=== PATIENT | male | born 1975 | race Caucasian/White ===

== ENCOUNTER 2024-09-10 09:50 | Emergency (ER) | payer SELFPAY ==
--- NOTE | 2024-09-10 14:36 | ED.DENTAL ---
HPI - Dental/Oral General Chief complaint: Dental/Oral Stated complaint: tooth pain Time Seen by Provider: 09/10/24 14:01 Source: patient Mode of arrival: ambulatory Limitations: no limitations History of Present Illness HPI Narrative: this is a 48-year-old male who presents to the ED for chief complaint of dental pain throughout the mouth, the horse on the left side. Reports this has been ongoing for the past 2 weeks and worse today. 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 Patient reports he knows he has rotten teeth and has not seen a dentist in 2 years. States that he wants to get ahead of the infection. denies fevers, chills, drooling, dysphagia, nausea, vomiting. Review of Systems Review of Systems: All systems as dictated in HPI Exam Narrative: GENERAL: Well-appearing, well-nourished, and in no acute distress. HEAD: Normocephalic, atraumatic. EYES: PERRLA and EOMI. ENT: nearly edentulous. remaining teeth are DKA. No appreciable abscess on exam. No trismus or drooling. Floor of the mouth intact. Facial swelling. NECK: Supple. No adenopathy or masses. CHEST: No respiratory distress. Clear to auscultation. No wheezes rales or rhonchi HEART: Regular rate and rhythm. No murmur heard. Normal peripheral pulses. ABDOMEN: Soft, nontender, nondistended, normal active bowel sounds. MSK: Normal range of motion. No edema. SKIN: Warm, dry, no rash. NEURO: Alert and oriented x4. No focal deficits. PSYCH: Normal mood and affect. MDM - Dental/Oral MDM Narrative Medical decision making narrative: This is a 48 yo male who presents to the ED for chief complaint of dental pain. Vitals are normal. Exam shows multiple teeth missing and remaining teeth are decaying. No appreciable abscess or deep space infection on exam. Rx for antibiotics for dental infection prescribed. He was given IM Toradol here. Dental resource sheet given Patient will be discharged in stable condition. Supportive measures discussed and return precautions given. Patient is understanding and agreeable with plan for discharge with PCP follow-up. Discharge Plan Discharge Clinical Impression: Dental caries Patient Disposition: Home, Self-Care Condition: Stable Instructions: Antibiotic Form, Toothache (ED) Additional Instructions: Your exam today shows multiple missing teeth and extensive dental decay. Please follow-up with dentist as soon as possible. Take antibiotics as prescribed. Use Tylenol and ibuprofen regularly for pain control. If you have any new or worsening symptoms please return to the ER for further evaluation. Prescriptions: New amoxicillin-pot clavulanate 875-125 mg tablet 1 tablet PO Q12H Qty: 14 0RF Follow-up/Referrals: PHYSICIAN NOT ON STAFF,NONSTAFF [Primary Care Provider] - Stand Alone Forms: Work/School Release IP Time of Disposition: 14:39
[2024-09-10] MEDS: Please add drug allergy info to patient profile. 1 EACH XX (15:21)
[2024-09-10] MEDS: KETOROLAC 30 MG/ML VIAL (*BKC) IM (15:21)
[2024-09-10 15:35] VITALS: BP 158/90; PULSE 93; RESP 20; TEMP 36.7; O2SAT 95
== END 2024-09-10 15:35 | disposition home or self-care (01) ==
PROVIDERS: Emergency Provider Physician Assistant
DX: K02.9 Dental caries, unspecified (principal)
CPT/HCPCS: 96372; 99283; J1885